=== PATIENT | male | born 1990 | race Two or more races ===

== ENCOUNTER 2023-02-18 14:30 | Emergency (ER) | payer OTHER ==
[~2023-02-18] VITALS: Ht 172.7 cm; Wt 86.3 kg
[2023-02-18] MEDS ORDERED: IOHEXOL 300 MG/ML 100ML BOTTLE IJ ONE (15:01)
[2023-02-18 15:12] LABS: Basophils # (auto) 0 10 ^3/uL (0-0.2); Basophils % (auto) 0.5 % (0.0-2.0); Eosinophils # (auto) 0.2 10 ^3/uL (0-0.8); Eosinophils % (auto) 2.8 % (0.0-7.0); Hematocrit 48.1 % (41.0-53.0); Hemoglobin 16.5 g/dL (13.5-17.5); Lymphocytes # (auto) 2.2 10 ^3/uL (0.4-5.4); Mean Corpuscular Hemoglobin 30.3 pg (28.0-32.0); Mean Corpuscular Hgb Conc. 34.3 g/dL (32.0-36.0); Mean Corpuscular Volume 88.2 fL (80.0-100.0); Monocytes # (auto) 0.8 10 ^3/uL (0-1.3); Monocytes % (auto) 10.1 % (0.0-12.0); Neutrophils # (auto) 4.9 10 ^3/uL (1.6-8.6); Neutrophils % (auto) 59.6 % (37.0-80.0); Nucleated Red Blood Cells % 0.3 %; Red Blood Cells 5.45 10^6/uL (4.5-5.90); Red Cell Distribution Width 13.5 % (11.8-14.3); White Blood Cell 8.1 10^3/uL (4.4-10.8)
[2023-02-18 15:32] LABS: Albumin 4.1 g/dL (3.4-5.0); Calcium 9.7 mg/dL (8.5-10.1); Potassium 3.8 mmol/L (3.5-5.1)
[2023-02-18 15:36] LABS: BUN/Creatinine Ratio 15.5 (10.0-20.0); Bilirubin, Total 1.1 mg/dL (0.2-1.0); Total Protein 8.2 g/dL (6.4-8.2)
[2023-02-18] MEDS ORDERED: SODIUM CHLORIDE 0.9% 1,000 ML IV ONE (17:15)
[2023-02-18] MEDS ORDERED: ONDANSETRON HCL 4 MG/2 ML VIAL IV ONE (18:30)
[2023-02-18] MEDS ORDERED: MORPHINE SULFATE INJ 2 MG/ml SYRG IV ONE (18:30)
[2023-02-18 19:22] VITALS: BP 126/71
[2023-02-18] MEDS ORDERED: IBUP800T27 PO ×3 (19:29→20:17)
[2023-02-18] MEDS ORDERED: CYCL-839 PO ×3 (19:29→20:17)
[2023-02-18 19:31] LABS: Urine Bacteria NONE SEEN /hpf (None Seen); Urine Blood 3+ /uL (Negative); Urine WBC 1 /hpf (0 - 3)
== END 2023-02-18 20:42 | disposition home or self-care (01) ==
LOC: EDBD 14:30 → ER 14:30
DX: I95.9 Hypotension, unspecified (principal); M54.59 Other low back pain
CPT/HCPCS: 36415; 70450; 71045; 71250; 72125; 73060; 73562; 74177; 80053; 81001; 82962; 83690; 84484; 85025; 93005; 96361; 96374; 96375; 99285; J2270; J2405; J7030; Q9967